=== PATIENT | male | born 2000 | race African-American/Black ===

== ENCOUNTER → 2020-05-03 | Emergency (ER) | payer OTHER ==
[~2020-05-03] VITALS: Ht 188 cm; Wt 70.3 kg
== END ==
LOC: ED 15:01
DX: S13.9XXA Sprain of joints and ligaments of unspecified parts of neck, initial encounter (principal); S43.402A Unspecified sprain of left shoulder joint, initial encounter; S33.5XXA Sprain of ligaments of lumbar spine, initial encounter; S23.3XXA Sprain of ligaments of thoracic spine, initial encounter; Z87.891 Personal history of nicotine dependence; V69.9XXA Occupant (driver) (passenger) of heavy transport vehicle injured in unspecified traffic accident, initial encounter
CPT/HCPCS: 72040; 72070; 72100; 73030; 99283-25